=== PATIENT | male | born 2000 | race Caucasian/White ===

== ENCOUNTER 2024-10-16 18:22 | Emergency (ER) | payer OTHER, SELFPAY ==
--- NOTE | ~2024-10-16 | XR_ITS ---
EXAMINATION: XR ankle LT min 3V DATE: 10/16/2024 19:10 INDICATION: Posterior left ankle pain post fall TECHNIQUE: Anteroposterior, oblique, mortise, and lateral views of the left ankle were obtained. COMPARISON: None. FINDINGS: Alignment is normal. No fracture. Joint spaces are well maintained. No ankle joint effusion. Sugges tion of mild soft tissue swelling about the ankle. IMPRESSION: 1. No osseous abnormality. Reviewed, dictated and finalized at location A. CLE SALES PROFESSIONAL IMPRESSION: 1. No osseous abnormality.
--- NOTE | ~2024-10-16 | CT_ITS ---
EXAMINATION: CT foot LT wo con DATE: 10/16/2024 20:18 INDICATION: Posterior left ankle pain post fall TECHNIQUE: High resolution computed tomography (CT) of the left foot and ankle was performed without intravenous contrast. Additional sagittal and coronal reconstructions were performed. Automated expos ure control and iterative reconstruction technique were employed. The dose-length product was 620.32 mGy-cm. COMPARISON: Radiographs dated 10/16/2024 FINDINGS: Bone alignment is normal. No fracture. Joint spaces are normal. Tiny sclerotic bone island at the pos terior calcaneus. There is soft tissue swelling with subcutaneous edema overlying the lateral malleol us. No ankle joint effusion. IMPRESSION: 1. Soft tissue swelling about the lateral malleolus. No acute osseous abnormality. Reviewed, dictated and finalized at location A. ERIES SPECIALIST IMPRESSION: 1. Soft tissue swelling about the lateral malleolus. No acute osseous abnormali ty.
[2024-10-16 18:52] VITALS: BP 126/62; PULSE 81; RESP 18; TEMP 36.8; O2SAT 100
--- NOTE | 2024-10-16 20:04 | PC.NURSE ---
Ice applied to the affected ankle.
--- NOTE | 2024-10-16 20:11 | ED_ITS ---
HPI - Extremity Injury (Lower) General Chief Complaint: Extremity Injury, Lower Stated Complaint: fall Time Seen by Provider: 10/16/24 19:25 Source: patient Mode of arrival: EMS Limitations: no limitations History of Present Illness HPI Narrative: this is a 24-year-old male that presents to the emergency department for left foot pain. 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 Reports hearing a pop. He is not been able to ambulate since. Reports decreased range of motion due to pain. He did not hit his head or lose consciousness. Denies numbness. Related Data Allergies Allergy/AdvReac Type Severity Reaction Status Date / Time No Known Allergies Allergy Unverified 11/16/17 17:50 Review of Systems Review of Systems: CONSTITUTIONAL: Denies fever MUSCULOSKELETAL: Reports joint pain, and myalgia. NEUROLOGIC: Denies numbness, or weakness. All systems reviewed & are unremarkable except as noted in HPI and below PMFSH Past Medical History Medical History (Updated 10/16/24 @ 21:05 by Gita Gomez PA-C) History of hypertension Social History Social History (Updated 10/16/24 @ 20:13 by Gita Gomez PA-C) Substance use: never Exam Narrative: GENERAL: Well-appearing, well-nourished, and in no acute distress. HEAD: Normocephalic, atraumatic. EYES: EOMI. EXTREMITIES: Decreased active ROM in the left ankle due to pain. No edema or obvious deformity. Normal DP pulse. Normal sensation SKIN: Warm, dry, no rash. NEURO: No focal deficits. Alert and oriented x3. PSYCH: Normal mood and affect Course Course Emergency Course: patient updated on workup and agrees with plan of care Vital Signs Vital signs: Vital Signs Temperature 98.2 F 10/16/24 18:52 Pulse Rate 81 10/16/24 18:52 Respiratory Rate 18 10/16/24 18:52 Blood Pressure 126/62 10/16/24 18:52 Pulse Oximetry 100 10/16/24 18:52 Oxygen Delivery Room Air 10/16/24 18:52 Temperature 98.2 F 10/16/24 18:52 Pulse Rate 81 10/16/24 18:52 Respiratory Rate 18 10/16/24 18:52 Blood Pressure 126/62 10/16/24 18:52 Pulse Oximetry 100 10/16/24 18:52 Oxygen Delivery Room Air 10/16/24 18:52 Procedures Orthopedic Splinting/Casting Injury #1: Splinting/Casting Date: 10/16/24 Splinting/Casting Time: 21:04 Side: left Lower Extremity Injury Location: ankle Lower Extremity Immobilizer: Juan M wrap Pre-Procedure Neuro Vascular Exam: normal Post-Procedure Neuro Vascular Exam: normal Other Orthopedic Equipment: crutches MDM - Extremity Injury (Lower) MDM Narrative Medical decision making narrative: Patient presents to the ER for left ankle pain after an injury today. He is neurovascularly intact. Left ankle x-ray without acute osseous abnormalities. Left foot CT scan also without acute osseous abnormalities. patient updated on workup and agrees with plan of care. He was given warnings to return to the ER Differential Diagnosis Differential diagnosis: Likely ankle sprain and strain and ankle fracture Imaging Data Radiologist's impression: ITS Impressions Ankle X-Ray 10/16/24 19:12 IMPRESSION: 1. No osseous abnormality. Foot CT 10/16/24 20:22 IMPRESSION: 1. Soft tissue swelling about the lateral malleolus. No acute osseous abnormality. Critical Care Time Critical Care Time Critical Care Time: No Discharge Plan Discharge Clinical Impression: Ankle sprain and strain Patient Disposition: Home, Self-Care Condition: Stable Instructions: Ankle Sprain (ED) Additional Instructions: Return to the ER if you experience fever, redness and swelling of your extremity, numbness or any other symptoms that are concerning to you Wear JUAN M wrap and use crutches. No weight on the affected leg until able to bear weight without pain. Ice and elevate extremity. Tylenol as needed for pain. Toradol as needed for pain. If you take this medication do not take with other anti-inflammatories (Aleve, Ibuprofen, naproxen, etc) Follow up with primary care doctor for further care. Prescriptions: New ketorolac 10 mg tablet 10 mg PO Q8H PRN (Reason: pain) Qty: 10 0RF Rx Instructions: maximum total duration of 5 days from all oral, intranasal, or parenteral formulations Follow-up/Referrals: PHYSICIAN,BENCH WORKER [Primary Care Provider] - Jose Alberto Lopez MD [Physician] -
[2024-10-16 21:49] VITALS: BP 132/84; PULSE 67; RESP 18; O2SAT 98
[2024-10-16 21:51] VITALS: BP 130/80; PULSE 86; RESP 15; O2SAT 100
== END 2024-10-16 21:35 | disposition home or self-care (01) ==
PROVIDERS: Emergency Provider Physician Assistant
DX: S93.402A Sprain of unspecified ligament of left ankle, initial encounter (principal); S96.912A Strain of unspecified muscle and tendon at ankle and foot level, left foot, initial encounter; I10 Essential (primary) hypertension; X50.9XXA Other and unspecified overexertion or strenuous movements or postures, initial encounter
CPT/HCPCS: 73610; 73700; 99284

== ENCOUNTER 2024-11-13 21:24 | Observation (INO) | payer OTHER, SELFPAY ==
--- NOTE | ~2024-11-13 | CT_ITS ---
EXAMINATION: CT abdomen pelvis w con DATE: 11/14/2024 00:04 INDICATION: Generalized abdominal pain. Nausea and vomiting. TECHNIQUE: Computed tomography (CT) of the abdomen and pelvis was performed with 100 mL Omnipaque 350 intravenous contrast. Automated exposure control and iterative reconstruction technique were employe d. The dose-length product was 1457.64 mGy-cm. COMPARISON: None. FINDINGS: The visualized portions of the lung bases are clear without pneumonia or pleural effusion. The heart size is normal. No pericardial effusion. The liver, gallbladder, spleen, pancreas, adrenal glands, kidneys are normal. There are no dilated loops of bowel. The appendix is fluid-filled and dil ated to 9 mm. There are no pathologically enlarged lymph nodes. There is no free intraperitoneal flui d. There is mild lumbar spondylosis. IMPRESSION: 1. Appendiceal diameter of 9 mm, which is indeterminate for acute appendicitis. Reviewed, dictated and finalized at location A. NUE OFFICER
[2024-11-13 21:31] VITALS: BP 173/100; PULSE 93; RESP 17; TEMP 36.6; O2SAT 94
[2024-11-13 21:53] VITALS: BP 147/84; PULSE 68; RESP 17; TEMP 37.2; O2SAT 96
[2024-11-13 22:10] VITALS: BP 157/89; PULSE 68; RESP 14; TEMP 37.3; O2SAT 97
[2024-11-13] MEDS: SODIUM CHLORIDE 0.9% IV 1,000 ML 999 ML IV CONT ×2 (22:11→22:31)
[2024-11-13] MEDS: ONDANSETRON INJ 4 MG/2 ML VIAL IV PUSH (22:12)
[2024-11-13] MEDS: FAMOTIDINE 20 MG/2 ML VIAL IV PUSH (22:26)
[2024-11-13] MEDS: MORPHINE SULFATE (*CRX) 4 MG/ML INJ IV PUSH (22:27)
[2024-11-13 22:35] VITALS: BP 155/106; PULSE 63; RESP 17; TEMP 36.6; O2SAT 98
--- NOTE | 2024-11-13 22:52 | ED.ABDPAIN ---
HPI - Abdominal Pain General Chief Complaint: Abdominal Pain Stated Complaint: weak n/v abdominal pain Time Seen by Provider: 11/13/24 21:50 Source: patient and family Mode of arrival: EMS Limitations: no limitations and clinical condition History of Present Illness HPI narrative: Patient is a 24-year-old male who presents the ED via EMS with report of nausea and vomiting. Family at bedside assisted in providing information. Reports patient began feeling unwell this morning and developed nausea and vomiting. Has been unable to keep down any food or drink. States he has been going in and out due to the vomiting. C/o diffuse pain throughout abdomen. Family states he has had similar episodes in the past and over the past 1 month, previously was thought to be related to food poisoning or synthetic marijuana use. Patient does occasionally smoke marijuana, but has not in the last 2 days. Denies diarrhea, constipation, fevers, sick contacts. Was given 4 mg of Zofran by EMS. Related Data Allergies Allergy/AdvReac Type Severity Reaction Status Date / Time No Known Allergies Allergy Unverified 11/16/17 17:50 Review of Systems Review of Systems: All systems reviewed & are unremarkable except as noted in HPI. All systems reviewed & are unremarkable except as noted in HPI and below PMFSH Past Medical History Medical History History of hypertension Social History Social History Substance use: never Exam Narrative: GENERAL: Ill and diaphoretic appearing, morbidly obese with BMI of 42.0, in mild acute distress. Moaning on stretcher. HEAD: Normocephalic, atraumatic. RESPIRATORY: Airway patent, respirations nonlabored. Clear to auscultation bilaterally, no rales, rhonchi, wheezing. CARDIOVASCULAR: Regular rate and rhythm without murmurs, rubs, or gallops. ABDOMINAL: Soft, no appreciable focal tenderness, diffuse mild tenderness, nondistended. Normoactive BS. MUSCULOSKELETAL: Moves all extremities. No gross deformities. SKIN: Warm, slightly pale and diaphoretic appearing. NEURO: A&O X3. Speech clear though patient refusing to answer questions at times - staring off into space, closing eyes. Cranial nerves II-XII grossly intact. No ataxic movements. PSYCHIATRIC: Somewhat uncooperative, refusing to answer at times. Course Vital Signs Vital signs: Vital Signs Temperature 97.9 F 11/13/24 21:31 Pulse Rate 93 11/13/24 21:31 Respiratory Rate 17 11/13/24 21:31 Blood Pressure 173/100 H 11/13/24 21:31 Pulse Oximetry 94 11/13/24 21:31 Oxygen Delivery Room Air 11/13/24 21:31 Temperature 97.9 F 11/13/24 22:35 Pulse Rate 68 11/14/24 01:56 Respiratory Rate 28 H 11/14/24 01:56 Blood Pressure 142/73 H 11/14/24 01:56 Pulse Oximetry 99 11/14/24 01:56 Oxygen Delivery Room Air 11/13/24 21:31 MDM - Abdominal Pain MDM Narrative Medical decision making narrative: Patient presented to ED with nausea, vomiting, diffuse abdominal pain, onset this morning. History of similar previous episodes. Patient hypertensive upon arrival. He does have history of this. Afebrile. Cbc was of blood cell count of 16.4. Neutrophil predominance. No bandemia. Patient has had profuse vomiting prior to arrival. Likely in part reactive. CMP with potassium of 3.3. Will replace. Stable kidney function. Lactic acid within normal range at 1.6. Magnesium within normal range. Total bili minimally elevated, otherwise normal LFTs. Normal lipase. Urine with 2+ ketones, no signs of infection. Fluids are ongoing. Urine drug screen is positive for opioids (patient received Morphine here prior to sample) as well as cannabinoids. I do suspect component of cyclic vomiting syndrome. Patient is reporting multiple recent similar episodes over the last 1 month. Viral swabs were negative. CT scan of abdomen/pelvis was obtained and showing possible early minimal acute non perforated appendicitis. Discussed lab and imaging findings with patient. Patient is overall feeling improved, but is still reporting some pain throughout his periumbilical region. He does not seem to have any significant focal tenderness in right lower quadrant. No rebound tenderness. Will discuss with surgery. Discussed with Dr. Rice with general surgery, recommended admission under his service, start zosyn, keep NPO, will see patient. Patient is in agreement this plan and need for admission. Medical Records Attestation: I reviewed the patient's medical records. Lab Data Attestation: I reviewed the patient's lab results. 11/13/24 22:49 11/13/24 22:49 Labs: Lab Results 11/13/24 11/13/24 Range/Units 22:49 23:27 WBC 16.4 H (4.5-10.0) K/mm3 RBC 4.91 (4.6-6.20) M/mm3 Hgb 15.2 (14.0-18.0) g/dL Hct 42.7 (42.0-52.0) % MCV 87.0 (80-100) fl MCH 31.0 (26-34) pg MCHC 35.6 (32-36) g/dl RDW 12.3 (11.5-14.5) % Plt Count 273 (150-375) k/mm3 MPV 10.8 H (7.4-10.4) fl Immature Gran % (Auto) 0.4 (0-0.5) % Neut % (Auto) 77.1 H (45.5-73.1) % Lymph % (Auto) 16.0 L (18.3-44.2) % [place] % (Auto) 6.0 (2.6-8.5) % Eos % (Auto) 0.2 (0-4.4) % Baso % (Auto) 0.3 (0.2-1.2) % Lymph # (Auto) 2.62 (0.9-3.2) K/mm3 [place] # (Auto) 1.0 H (0.1-0.6) K/mm3 Eos # (Auto) 0.0 (0-0.3) K/mm3 Baso # (Auto) 0.1 (0.0-0.1) K/mm3 Abs Immat Gran (auto) 0.06 H (0.00-0.031) K/mm3 Absolute Neuts (auto) 12.7 H (1.3-6.7) K/mm3 Absolute Nucleated RBC 0.000 (0.0-0.012) K/mm3 Nucleated RBC % 0.0 (0.0-0.2) % Sodium 140 (137-145) mmol/L Potassium 3.3 L (3.4-5.0) mmol/L Chloride 110 H (98-107) mmol/L Carbon Dioxide 23 (22-30) mmol/L Anion Gap 7 (4-12) mmol/L BUN 10 (9-20) mg/dL Creatinine 0.70 (0.7-1.3) mg/dL Estim Creat Clear Calc 172 ml/min Estimated GFR > 60 (59 - ) Glucose 166 H (65-110) mg/dL Lactic Acid 1.6 (0.7-2.0) mmol/L Calcium 9.5 (8.4-10.2) mg/dL Magnesium 1.9 (1.6-2.3) mg/dL Total Bilirubin 1.8 H (0.2-1.3) mg/dL AST 19 (17-59) U/L ALT 16 (6-50) U/L Alkaline Phosphatase 87 (38-126) U/L Total Creatine Kinase 38 L (55-170) U/L Total Protein 7.0 (6.3-8.2) g/dL Albumin 4.5 (3.5-5.1) g/dL Lipase 31 (23-300) U/L Urine Color Yellow (Yellow) Urine Appearance Clear (Clear) Urine pH 6.0 (5.0-9.0) Ur Specific [place] 1.020 (1.001-1.035) Urine Protein Negative (Negative) mg/dL Urine Glucose (UA) Negative (Negative) mg/dL Urine Ketones 2+ H (Negative) mg/dL Ur Blood (Man) Negative (Negative) Urine Nitrate Negative (Negative) Urine Bilirubin Negative (Negative) Urine Urobilinogen 1.0 (<2.0) mg/dL Leukocyte Esterase Rfl Negative (Negative) MADELAINE/UL Urine Opiates Screen Positive A (Negative) Urine Methadone Screen Negative (Negative) Ur Barbiturates Screen Negative (Negative) Ur Phencyclidine Scrn Negative (Negative) Ur Amphetamine Screen Negative (Negative) U Benzodiazepines Scrn Negative (Negative) Urine Cocaine Screen Negative (Negative) U Cannabinoids Screen Positive A (Negative) Influenza A (RT-PCR) Negative (Negative) Influenza B (RT-PCR) Negative (Negative) RSV (RT-PCR) Negative (Negative) SARS-CoV-2 RNA (RT-PCR) Negative (Negative) Imaging Data Attestation: I personally reviewed and interpreted this imaging study as follows: Radiologist's impression: STAT RAD CT abd/pelvis: Motion degraded. Possible mesenteric adenitis. Possibly prominent appendix versus early minimal acute non perforated appendicitis, diameter 0.9 cm. Correlate with presentation. Otherwise no acute findings. Discharge Plan Discharge Clinical Impression: Acute appendicitis Qualifiers: Acute appendicitis type: with localized peritonitis Appendicitis gangrene presence: without gangrene Appendicitis perforation presence: without perforation Appendicitis abscess presence: without abscess Qualified Code(s): K35.30 - Acute appendicitis with localized peritonitis, without perforation or gangrene Patient Disposition: Still a Patient Condition: Stable Patient Language: Colombian Prescriptions: No Action ketorolac 10 mg tablet 10 mg PO Q8H PRN (Reason: pain) Qty: 10 0RF Rx Instructions: maximum total duration of 5 days from all oral, intranasal, or parenteral formulations Follow-up/Referrals: PHYSICIAN,CAGE UNLOADER [Primary Care Provider] -
[2024-11-13 23:17] LABS: Basophils Absolute Auto 0.1 K/mm3 (0.0-0.1); Basophils Percent Auto 0.3 % (0.2-1.2); Eosinophils Percent Auto 0.2 % (0-4.4); Hematocrit 42.7 % (42.0-52.0); Hemoglobin 15.2 g/dL (14.0-18.0); Immature Granulocyte Absolute 0.06 K/mm3 (0.00-0.031); Immature Granulocyte Percent A 0.4 % (0-0.5); Lymphocytes Absolute Auto 2.62 K/mm3 (0.9-3.2); Mean Corpuscular HGB Conc 35.6 g/dl (32-36); Mean Platelet Volume 10.8 fl (7.4-10.4); Neutrophils Absolute Auto 12.7 K/mm3 (1.3-6.7); Neutrophils Percent Auto 77.1 % (45.5-73.1); Platelet Count Result 273 k/mm3 (150-375); Red Blood Count 4.91 M/mm3 (4.6-6.20); Red Cell Distribution Width 12.3 % (11.5-14.5); White Blood Count 16.4 K/mm3 (4.5-10.0)
[2024-11-13 23:28] LABS: Alanine Aminotransferase 16 U/L (6-50); Albumin Level 4.5 g/dL (3.5-5.1); Alkaline Phosphatase 87 U/L (38-126); Anion Gap 7 mmol/L (4-12); Aspartate Amino Transferase 19 U/L (17-59); Bilirubin,Total 1.8 mg/dL (0.2-1.3); Blood Urea Nitrogen 10 mg/dL (9-20); Calcium 9.5 mg/dL (8.4-10.2); Carbon Dioxide 23 mmol/L (22-30); Chloride 110 mmol/L (98-107); Estimated CRCL calculation 172 ml/min; Estimated Glomerular Filt Rate > 60; Glucose 166 mg/dL (65-110); Lipase 31 U/L (23-300); Magnesium 1.9 mg/dL (1.6-2.3); Potassium 3.3 mmol/L (3.4-5.0); Sodium 140 mmol/L (137-145)
[2024-11-13 23:36] LABS: Add Urine Microscopic? NO; Appearance Urine Clear (Clear); Bilirubin Urine Negative (Negative); Blood Urine Negative (Negative); Color Urine Yellow (Yellow); Glucose Urine UA Negative (Negative); Ketones Urine 2+ mg/dL (Negative); Leukocyte Esterase Ur Negative LEU/UL (Negative); Nitrate Urine Negative (Negative); Protein Urine Negative (Negative)
[2024-11-13 23:43] LABS: Creatine Kinase 38 U/L (55-170)
[2024-11-13 23:44] LABS: Lactic Acid Reflex 1.6 mmol/L (0.7-2.0)
[2024-11-13 23:51] LABS: Barbiturate Screen Urine Negative (Negative); Benzodiazepines Screen Urine Negative (Negative)
[2024-11-13 23:52] LABS: Amphetamine Screen Urine Negative (Negative); Cannabinoid Screen Urine Positive (Negative); Methadone Screen Urine Negative (Negative); Opiate Screen Urine Positive (Negative); Phencyclidine Screen Urine Negative (Negative)
[2024-11-13 23:55] LABS: Influenza A QL RT-PCR Negative (Negative); Influenza B QL RT-PCR Negative (Negative); RSV RNA, RT-PCR Negative (Negative); SARS-CoV-2 RNA PCR Negative (Negative)
[2024-11-14] VITALS (15 sets, daily range): BP systolic 107–176; BP diastolic 65–97; PULSE 51–90; RESP 12–32; TEMP 36.3–37.5; O2SAT 95–100; BMI 42.8
[2024-11-14 00:03] LABS: Cocaine Screen Urine Negative (Negative)
[2024-11-14] MEDS: METOCLOPRAMIDE HCL INJ 10 MG/2 ML VIAL IV PUSH (01:40)
[2024-11-14] MEDS: POTASSIUM CHLORIDE 20 MEQ ER TABLET PO (01:41)
[2024-11-14] MEDS: diphenhydrAMINE HCl INJ 50 MG/ML VIAL 25 MG IV PUSH (01:41)
[2024-11-14] MEDS: PIPERACILLN/TAZ 3.375GM/NS50ML 3.375 GM/50 ML BAG IVPB ×3 (02:35→12:16)
--- NOTE | 2024-11-14 02:36 | PC.NURSE ---
This RN radha blood cultures from pt right AC and right hand.
--- NOTE | 2024-11-14 03:46 | ADMGEN ---
This patient, Tariq Arceo, was admitted to [facility] Surg Room 314-01. Patient/family oriented to hospital policies and general routines including ID bracelet, bed and alarms, visiting hours, pain management, procedures, bathroom and other care routines, personal items, smoking policy, room service/diet, and visiting hours. Information on how to activate the Rapid Response Team has been discussed. Patient/Family are encouraged to report perceived risks to care and to ask questions if they do not understand what they are told or what they should do.
[2024-11-14] MEDS: SODIUM CHLORIDE 0.9% IV 1,000 ML 100 ML IV CONT (04:12)
[2024-11-14] MEDS: ONDANSETRON INJ 4 MG/2 ML VIAL IV PUSH ×2 (06:33→13:32)
--- NOTE | 2024-11-14 08:44 | P.PNAN_ITS ---
Anes - Initial Pre Proc Eval Procedure: Operation Date: 11/14/24 09:30 Proposed Procedures p Laparoscopic Appendectomy, Possible Open - Boubacar Rice DO Date/Time: 11/14/24 08:44 Surgeon: Boubacar Rice DO Pre Op Diagnosis: Acute Appendicitis Patient Data Age: 24 Gender: M Height: 1.68 m Weight: 120.5 kg Last Vital Signs Temp 36.3 C L 11/14/24 04:11 Pulse 90 11/14/24 04:11 Resp 18 11/14/24 04:11 BP 131/65 11/14/24 04:11 Pulse Ox 100 11/14/24 04:11 O2 Del Method Room Air 11/13/24 21:31 Allergies Allergy/AdvReac Type Severity Reaction Status Date / Time No Known Allergies Allergy Unverified 11/16/17 17:50 Home Medications ?Medication ?Instructions ?Recorded ?Confirmed ?Type ketorolac 10 mg tablet 10 mg PO Q8H PRN pain #10 tabs 10/16/24 Rx Laboratory Tests 11/13/24 11/13/24 22:49 23:27 WBC 16.4 H K/mm3 (4.5-10.0) RBC 4.91 M/mm3 (4.6-6.20) Hgb 15.2 g/dL (14.0-18.0) Hct 42.7 % (42.0-52.0) MCV 87.0 fl (80-100) MCH 31.0 pg (26-34) MCHC 35.6 g/dl (32-36) RDW 12.3 % (11.5-14.5) Plt Count 273 k/mm3 (150-375) MPV 10.8 H fl (7.4-10.4) Immature Gran % (Auto) 0.4 % (0-0.5) Neut % (Auto) 77.1 H % (45.5-73.1) Lymph % (Auto) 16.0 L % (18.3-44.2) [place] % (Auto) 6.0 % (2.6-8.5) Eos % (Auto) 0.2 % (0-4.4) Baso % (Auto) 0.3 % (0.2-1.2) Lymph # (Auto) 2.62 K/mm3 (0.9-3.2) [place] # (Auto) 1.0 H K/mm3 (0.1-0.6) Eos # (Auto) 0.0 K/mm3 (0-0.3) Baso # (Auto) 0.1 K/mm3 (0.0-0.1) Abs Immat Gran (auto) 0.06 H K/mm3 (0.00-0.031) Absolute Neuts (auto) 12.7 H K/mm3 (1.3-6.7) Absolute Nucleated RBC 0.000 K/mm3 (0.0-0.012) Nucleated RBC % 0.0 % (0.0-0.2) Sodium 140 mmol/L (137-145) Potassium 3.3 L mmol/L (3.4-5.0) Chloride 110 H mmol/L (98-107) Carbon Dioxide 23 mmol/L (22-30) Anion Gap 7 mmol/L (4-12) BUN 10 mg/dL (9-20) Creatinine 0.70 mg/dL (0.7-1.3) Estim Creat Clear Calc 172 ml/min Estimated GFR > 60 (59 - ) Glucose 166 H mg/dL (65-110) Lactic Acid 1.6 mmol/L (0.7-2.0) Calcium 9.5 mg/dL (8.4-10.2) Magnesium 1.9 mg/dL (1.6-2.3) Total Bilirubin 1.8 H mg/dL (0.2-1.3) AST 19 U/L (17-59) ALT 16 U/L (6-50) Alkaline Phosphatase 87 U/L (38-126) Total Creatine Kinase 38 L U/L (55-170) Total Protein 7.0 g/dL (6.3-8.2) Albumin 4.5 g/dL (3.5-5.1) Lipase 31 U/L (23-300) Urine Color Yellow (Yellow) Urine Appearance Clear (Clear) Urine pH 6.0 (5.0-9.0) Ur Specific [place] 1.020 (1.001-1.035) Urine Protein Negative mg/dL (Negative) Urine Glucose (UA) Negative mg/dL (Negative) Urine Ketones 2+ H mg/dL (Negative) Ur Blood (Man) Negative (Negative) Urine Nitrate Negative (Negative) Urine Bilirubin Negative (Negative) Urine Urobilinogen 1.0 mg/dL (<2.0) Leukocyte Esterase Rfl Negative [place]AD[place]INE/UL (Negative) Urine Opiates Screen Positive A (Negative) Urine Methadone Screen Negative (Negative) Ur Barbiturates Screen Negative (Negative) Ur Phencyclidine Scrn Negative (Negative) Ur Amphetamine Screen Negative (Negative) U Benzodiazepines Scrn Negative (Negative) Urine Cocaine Screen Negative (Negative) U Cannabinoids Screen Positive A (Negative) Influenza A (RT-PCR) Negative (Negative) Influenza B (RT-PCR) Negative (Negative) RSV (RT-PCR) Negative (Negative) SARS-CoV-2 RNA (RT-PCR) Negative (Negative) Patient hx anesthesia problems: none Family hx anesthesia problems: none Results Review: All pre-operative results and documents have been reviewed as part of the pre-operative evaluation. COUNTS INCLUDE 234 BEDS AT THE [facility] Past Medical History Medical History History of hypertension Social History Social History (Updated 11/14/24 @ 09:11 by Wyatt Cai DO) Smoking status: Never smoker Additional smoking assessment comments: NICOTINE VAPING Alcohol intake: never Substance use: current Substance use type: marijuana Other substance usage details: daily Do You Feel Safe in your Home?: Yes Lack of Transportation: YES Lack of Food: Never True Current Housing: I Have Housing Concerned About Future Housing: No Difficulty Paying Gas/Electric Bills: No Difficulty Paying for Meds: No Currently Unemployed: No Education: High School Diploma/GED Difficulty w/ Childcare or Family Care: No Spiritual care concerns: No Anes - Eval Final PreProcedure Day of Procedure 11/14/24 08:44 Patient weight: morbidly obese Heart: regular rate and rhythm Lungs: clear to auscultation Airway: Mallampati scale class III Neurological: alert and oriented Last oral intake: >/= 8 hours ASA classification: III Emergent: yes Anesthetic plan: proceed Anesthesia type and monitoring: general GIVS and standard monitoring Results Review: All pre-operative results and documents have been reviewed as part of the pre-operative evaluation. Informed Consent: The patient's anesthetic plan and its attendant risks and benefits were discussed with the patient/family/POA. Questions were solicited and answers provided to the satisfaction of the patient/family/POA.
[2024-11-14] MEDS: LACTATED RINGERS 1,000 ML 30 ML IV CONT ×2 (09:00→12:20)
--- NOTE | 2024-11-14 10:01 | P.HP_ITS ---
H&P: HPI History of Present Illness Date/Time: 11/14/24 10:01 Chief Complaint: Periumbilical abdominal pain Narrative: This is a 24-year-old man who presented to the emergency department overnight with abdominal pain with nausea and vomiting. Patient has been having intermittent abdominal pain over the past week. It has mostly been located periumbilical but last night it was also starting to localize more to the right lower quadrant. His bowels have been moving normally. He denies any fevers. In the emergency department he was noted to have an elevated white blood count and CT showed evidence of a dilated appendix suggestive of possible early acute appendicitis. He was started on broad-spectrum IV antibiotics and admitted for further treatment. Review of Systems Review of Systems: All systems reviewed & are unremarkable except as noted in HPI and below Eyes: Eyes: Denies change in vision ENT: Denies hearing loss, Denies neck pain and Denies sore throat Cardiovascular: Cardiovascular: Denies chest pain and Denies dyspnea Respiratory: Respiratory: Denies cough, Denies dyspnea and Denies wheezing Gastrointestinal: Gastrointestinal: Reports as per HPI Genitourinary: Genitourinary: Denies hematuria and Denies dysuria Musculoskeletal: Musculoskeletal: Denies arthralgias, Denies joint swelling and Denies neck pain Allergic/Immunologic: Allergic/Immunologic: Denies wheezing PMFSH Past Medical History Medical History History of hypertension Social History Social History (Updated 11/14/24 @ 09:11 by Wyatt Cai DO) Smoking status: Never smoker Additional smoking assessment comments: NICOTINE VAPING Alcohol intake: never Substance use: current Substance use type: marijuana Other substance usage details: daily Do You Feel Safe in your Home?: Yes Lack of Transportation: YES Lack of Food: Never True Current Housing: I Have Housing Concerned About Future Housing: No Difficulty Paying Gas/Electric Bills: No Difficulty Paying for Meds: No Currently Unemployed: No Education: High School Diploma/GED Difficulty w/ Childcare or Family Care: No Spiritual care concerns: No Meds Home Medications and Allergies Home Medications ?Medication ?Instructions ?Recorded ?Confirmed ?Type ketorolac 10 mg tablet 10 mg PO Q8H PRN pain #10 tabs 10/16/24 Rx Allergies Allergy/AdvReac Type Severity Reaction Status Date / Time No Known Allergies Allergy Verified 11/14/24 09:27 Vital Signs Vital Signs - 24 hr 11/13/24 21:31 11/13/24 21:53 11/13/24 22:10 Temperature 97.9 F 99.0 F 99.1 F Pulse Rate 93 68 68 Respiratory Rate 17 17 14 Blood Pressure 173/100 H 147/84 H 157/89 H Pulse Oximetry 94 96 97 Oxygen Delivery Room Air 11/13/24 22:35 11/14/24 01:56 11/14/24 02:55 Temperature 97.9 F Pulse Rate 63 68 81 Respiratory Rate 17 28 H 18 Blood Pressure 155/106 H 142/73 H 133/81 Pulse Oximetry 98 99 99 Oxygen Delivery 11/14/24 04:11 11/14/24 08:45 Temperature 97.3 F L 99.4 F Pulse Rate 90 51 L Respiratory Rate 18 12 Blood Pressure 131/65 153/83 H Pulse Oximetry 100 98 Oxygen Delivery Room Air Exam Const: General: alert; No acute distress Orientation/consciousness: patient oriented x3 Limitations: no limitations HENMT: Head: normocephalic and atraumatic Ears: hearing grossly normal bilaterally Face/Nose/Sinus: Normal external nose present and Normal nares present Mouth: Yes Normal oral and palatal mucosa present and Yes moist mucous membranes Eyes: General: appearance normal, both eyes and all related structures Conjunctivae: conjunctivae normal Sclera: sclerae normal Pupils: Equal, round and reactive pupils present EOM: EOMs intact bilaterally Neck: Neck: normal visual inspection, full ROM, no lymphadenopathy, supple and no JVD Lymphatic: no lymphadenopathy noted Chest: Chest palpation & inspection: normal inspection of the chest Resp: Effort & Inspection: normal respiratory effort and able to speak in complete sentences Auscultation: clear to auscultation bilaterally Percussion: percussion normal Cardio: Jugular venous distension: no JVD Rate: regular rate Rhythm: regular rhythm Heart sounds: S1 normal heart sound present and S2 normal heart sound present Peripheral pulses: Peripheral pulses 2+ throughout GI: Inspection: normal to inspection and obesity GI Palp: Yes Soft to palpation, Yes Tenderness to palpation present (GI) (Diffusely, but slightly worse in right lower quadrant), No Guarding due to palpation present (GI) and No Rebound tenderness present Auscultation: normal bowel sounds : General: Yes no CVA tenderness Back/Spine/Pelvis: Back: no CVA tenderness Skin: General skin exam: normal color and dry skin Neuro: General: patient oriented x3, gait normal, moves all extremities, no focal motor deficits and CN's II-XI intact bilaterally Cranial nerves: Yes Equal, round and reactive pupils present Speech: normal speech Extrem: General: normal to inspection and capillary refill normal H&P: Results Labs Labs: Short CBC 11/13/24 Range/Units 22:49 WBC 16.4 H (4.5-10.0) K/mm3 Hgb 15.2 (14.0-18.0) g/dL Hct 42.7 (42.0-52.0) % Plt Count 273 (150-375) k/mm3 BMP 11/13/24 22:49 Sodium 140 Potassium 3.3 L Chloride 110 H Carbon Dioxide 23 BUN 10 Creatinine 0.70 Glucose 166 H Calcium 9.5 Cardiac Enzymes 11/13/24 Range/Units 23:27 Total Creatine Kinase 38 L (55-170) U/L Liver Function 11/13/24 Range/Units 22:49 Total Bilirubin 1.8 H (0.2-1.3) mg/dL AST 19 (17-59) U/L ALT 16 (6-50) U/L Alkaline Phosphatase 87 (38-126) U/L Albumin 4.5 (3.5-5.1) g/dL Urine 11/13/24 Range/Units 23:27 Urine Color Yellow (Yellow) Urine Appearance Clear (Clear) Urine pH 6.0 (5.0-9.0) Ur Specific [place] 1.020 (1.001-1.035) Urine Protein Negative (Negative) mg/dL Urine Glucose (UA) Negative (Negative) mg/dL Imaging CT scan - abdomen: Radiologist's impression: ITS Impressions Abdomen/Pelvis CT 11/14/24 07:04 IMPRESSION: 1. Appendiceal diameter of 9 mm, which is indeterminate for acute appendicitis. Assessment and Plan Assessment and plan (1) Acute appendicitis: Qualifiers: Acute appendicitis type: with localized peritonitis Appendicitis abscess presence: without abscess Appendicitis gangrene presence: without gangrene Appendicitis perforation presence: without perforation Qualified Code(s): K35.30 - Acute appendicitis with localized peritonitis, without perforation or gangrene Code(s): K35.80 - Unspecified acute appendicitis Status: Acute Assessment and Plan: * I have reviewed the CT and discussed the findings with the patient. He has been having intermittent pains, but the past couple days the pain has become more persistent. CT shows evidence of a dilated appendix suggestive of possible early acute appendicitis. Along with his exam findings and elevated white blood count, I feel this would be reasonable to be treated as acute appendicitis. I discussed medical and surgical treatment options and patient feels comfortable proceeding with surgery. I have recommended laparoscopic a ppendectomy, possible open. I discussed the procedure, risks, benefits, and alternatives. Questions were answered. Patient was started on Zosyn in the emergency department. Will continue this perioperatively.
--- NOTE | 2024-11-14 10:01 | WPDHPUPDATE1 ---
History and Physical Update Update Date/Time: 11/14/24 10:01 History and Physical has been reviewed, including an updated exam of the patient. There are NO changes in the patient's condition. Risks, benefits, and alternatives have been discussed and questions answered. Patient agrees to proceed with procedure.
[2024-11-14] MEDS: BUPIVACAINE/EPINEPHRINE 0.5% 30 ML VIAL INFILTRATE (11:01)
--- NOTE | 2024-11-14 11:17 | P.OP_ITS ---
Procedure Note - Detailed Date of Procedure 11/14/24 Pre-op Diagnosis Acute Appendicitis Post-op Diagnosis Same Procedure Performed Laparoscopic appendectomy Surgeon Boubacar Rice, DO Anesthesia General and Local (0.5% bupivicaine with epinephrine) Indications This is a 24-year-old man who presented to the emergency department overnight with periumbilical and right lower quadrant abdominal pain. He had an elevated white blood count and CT showed evidence of a 9 mm dilated appendix. He was started on Zosyn and admitted for further treatment. Discussions were made with the patient about treatment options and decision was made to proceed with laparoscopic appendectomy, possible open. Findings Laparoscopic appendectomy was performed. The appendix did appear dilated and inflamed, but there was no evidence of perforation or abscess. The base of the appendix appeared healthy and viable. The appendix was removed and sent to the lab for pathology. Description of Procedure Procedure as well as risks, benefits, and alternatives were explained to the patient. The patient agreed to proceed. Written consent was obtained and placed in chart prior to procedure. The patient was brought back to surgical suite. He was placed supine on operating table. Time-out was done to confirm the patient and procedure. The patient was then intubated by the Anesthesia Department. His abdomen was prepped and draped in sterile fashion using chlorhexidine prep. A 5 mm incision was made just to the left of the patient's umbilicus and a 5 mm Optiview trocar was advanced through the abdominal layers under direct visualization. Once inside the peritoneal cavity, carbon dioxide insufflation was used to create a pneumoperitoneum. The camera was inserted and the abdomen was inspected. No immediate abnormalities were identified. The patient was then placed in slight Trendelenburg position and rotated to the left. A 5 mm incision was made in the suprapubic region in midline and a 5 mm trocar was inserted under direct visualization. A 12 mm incision was made in the left lower quadrant and a 12 mm trocar was inserted under direct visualization. The right lower quadrant was carefully inspected. The cecum was identified and then this was traced back to the appendix. The appendix was identified and grasped at the mesoappendix and lifted anteriorly. Careful blunt dissection was carried out at the base of the appendix through the mesoappendix using a [place] grasper. An Endo-BRENDA 45 mm blue load stapler was then advanced across the base of the appendix and clamped and fired. A white reload was then clamped across the mesoappendix and fired. This freed up our appendix completely. It was then placed in an EndoCatch bag and removed through the left lower quadrant port. The staple lines were then inspected. Hemostasis appeared adequate and the staple lines appeared secure. The area was then irrigated with sterile saline. The pelvis was then carefully inspected and irrigated with st erile saline as well and the remainder of the abdomen was carefully inspected. The patient was then flattened out in bed. One final inspection was made around the abdominal cavity and no other abnormalities were seen. The left lower quadrant port was removed and a Blas-Tasneem cone was used to approximate the fascia with an 0 Vicryl simple interrupted suture. The remaining ports were then removed under direct visualization. The camera was removed and the pneumoperitoneum was released. 0.5% bupivacaine with epinephrine was infiltrated locally around each of the incisions. The skin of the incisions was then approximated using 4-0 Monocryl subcuticular suture and Exofin glue was applied on top. The patient was then awakened from anesthesia, extubated, and transferred to Recovery. Estimated Blood Loss 25 Urine Output 300 Pathology Yes (Appendix) Complications No immediate complications Condition Stable Disposition Floor [facility] Billing Surgery - Charge Forward: Surgery Billing
--- NOTE | 2024-11-14 11:19 | P.DS_ITS ---
DS: Admitting Diagnosis Discharge Date 11/14/2024 Admitting Diagnosis Acute appendicitis DS: Discharge Diagnosis Discharge Diagnosis (1) Acute appendicitis: Qualifiers: Acute appendicitis type: with localized peritonitis Appendicitis abscess presence: without abscess Appendicitis gangrene presence: without gangrene Appendicitis perforation presence: without perforation Qualified Code(s): K35.30 - Acute appendicitis with localized peritonitis, without perforation or gangrene Code(s): K35.80 - Unspecified acute appendicitis Status: Acute DS: Summary Hospital Course Reason for hospitalization: Acute appendicitis Hospital Course: This is a 24-year-old man who presented to the emergency department on 11/13/2024 with right lower quadrant and periumbilical abdominal pain. CT showed evidence of acute appendicitis with a slightly dilated appendix. He also had an elevated white blood count and tenderness in the right lower quadrant. He was placed in observation and started on Zosyn. He underwent laparoscopic appendectomy on 11/14/2024. Surgery was uncomplicated and he was returned to the surgical floor postoperatively. His diet and activity were advanced as tolerated. He was discharged home once pain was controlled, vitals remained stable, he was tolerating his diet, and he was ambulating in the halls. Status at Discharge Functional status at discharge: independent ambulation Overall status at discharge: patient is progressing back to baseline Time Spent with Patient Time attestation: Total time spent providing and/or coordinating discharge services: Time spent: Less than 30 minutes Exam Const: General: comfortable and no acute distress Resp: Effort & Inspection: normal respiratory effort Cardio: Rate: regular rate Rhythm: regular rhythm GI: Inspection: incision (Intact with glue) GI Palp: Yes Soft to palpation DS: Data Data Completed and Pending Pending studies at discharge: Pending at discharge 11/14/24 11:09 Surgical [PTH] Routine Labs on day of discharge: Labs from last 24 hours 11/13/24 11/13/24 23:27 22:49 WBC 16.4 H RBC 4.91 Hgb 15.2 Hct 42.7 MCV 87.0 MCH 31.0 MCHC 35.6 RDW 12.3 Plt Count 273 MPV 10.8 H Immature Gran % (Auto) 0.4 Neut % (Auto) 77.1 H Lymph % (Auto) 16.0 L [place] % (Auto) 6.0 Eos % (Auto) 0.2 Baso % (Auto) 0.3 Lymph # (Auto) 2.62 [place] # (Auto) 1.0 H Eos # (Auto) 0.0 Baso # (Auto) 0.1 Abs Immat Gran (auto) 0.06 H Absolute Neuts (auto) 12.7 H Absolute Nucleated RBC 0.000 Nucleated RBC % 0.0 Sodium 140 Potassium 3.3 L Chloride 110 H Carbon Dioxide 23 Anion Gap 7 BUN 10 Creatinine 0.70 Estim Creat Clear Calc 172 Estimated GFR > 60 Glucose 166 H Lactic Acid 1.6 Calcium 9.5 Magnesium 1.9 Total Bilirubin 1.8 H AST 19 ALT 16 Alkaline Phosphatase 87 Total Creatine Kinase 38 L Total Protein 7.0 Albumin 4.5 Lipase 31 Urine Color Yellow Urine Appearance Clear Urine pH 6.0 Ur Specific [place] 1.020 Urine Protein Negative Urine Glucose (UA) Negative Urine Ketones 2+ H Ur Blood (Man) Negative Urine Nitrate Negative Urine Bilirubin Negative Urine Urobilinogen 1.0 Leukocyte Esterase Rfl Negative Urine Opiates Screen Positive A Urine Methadone Screen Negative Ur Barbiturates Screen Negative Ur Phencyclidine Scrn Negative Ur Amphetamine Screen Negative U Benzodiazepines Scrn Negative Urine Cocaine Screen Negative U Cannabinoids Screen Positive A Influenza A (RT-PCR) Negative Influenza B (RT-PCR) Negative RSV (RT-PCR) Negative SARS-CoV-2 RNA (RT-PCR) Negative Imaging Radiologist's impression: ITS Impressions Abdomen/Pelvis CT 11/14/24 07:04 IMPRESSION: 1. Appendiceal diameter of 9 mm, which is indeterminate for acute appendicitis. Discharge Plan Discharge Attending physician on discharge: Boubacar Michelle Discharging Clinician: Boubacar Michelle Anticipated Discharge Date/Time: 11/14/24 15:00 Patient Disposition: Home, Self-Care Activity: other - see discharge instructions Diet: regular Wound Care Instructions: other - see discharge instructions Discharge Instructions: DISCHARGE INSTRUCTION SHEET FOR HERNIA, GALLBLADDER AND APPENDIX SURGERIES DR. MICHELLE PATIENT TO TAKE HOME 1. May shower in 24 hours, no soaking in bath x 2weeks. 2. Call office for: * Wound increasingly painful or bleeding * Vomiting * Fever of greater than 101 degrees 3. If no bowel movement for three days, take 1 oz. (30 ml) Milk of Magnesia or MiraLax 17g 1 to 2 times daily. 4. No heavy lifting > 10-15 pounds x weeks for hernia repairs and 2 weeks for laparoscopic cholecystectomy or appendectomy. 5. No driving for 3 days or while taking narcotic pain medications. 6. Ice to surgical site for 48 hours (30 min on, then 30 min off). 7. Up walking 10-30 minutes three times per day. 8. Resume previous home medications. 9. Follow-up 10-14 days in office for wound check or as previously scheduled. ([phone]) 10. Oral pain medications prescription to be sent to pharmacy. Take Tylenol 500mg every 6 hours and Ibuprofen 600mg every 6 hours for the first 2 days, then as needed. 11. NUTRITION: Start out by drinking fluids and increase your diet as tolerated. If you experience nausea, try dry toast, crackers, and 7-UP. If nausea or vomiting persists, contact your surgeon?s office. 12. Gallbladders-Low Fat Diet for 2 weeks (send care note of low fat diet) 13. Inguinal Hernias-wear scrotal support for 48 hours 14. Abdominal Hernias-if sent home with abdominal binder, wear for the first 2 weeks (may remove to shower or at night to sleep). Revised March 2019 Patient Instructions: Antibiotic Form Patient Language: Bulgarian Stand Alone Forms: General Discharge Information, Work/School Release IP Follow-up/Referrals: Boubacar Michelle DO [Physician] - 2 Weeks Discharge Medications: New oxycodone-acetaminophen [Endocet] 5-325 mg tablet 1 tablet PO Q4H PRN (Reason: pain) Qty: 10 0RF Continued ketorolac 10 mg tablet 10 mg PO Q8H PRN (Reason: pain) Qty: 10 0RF Rx Instructions: maximum total duration of 5 days from all oral, intranasal, or parenteral formulations Date of admission: 11/14/24 02:08 Primary Care Provider: PHYSICIAN,BULLET SWAGING MACHINE OPERATOR Admitting Provider: Boubacar Michelle Attending physician on admission: Boubacar Michelle Condition: Improved
[2024-11-14] MEDS: fentaNYL CITRATE INJ (*CRX) 100 MCG/2 ML VIAL 25 MCG IV PUSH ×5 (11:55→13:06)
--- NOTE | 2024-11-14 12:30 | SUR.PREOP ---
CORRECTION: PATIENT WAS ON 8 LITERS OXYGEN UPON ARRIVAL TO PACU AT 1126 AND NOT ROOM AIR IS CHARTED IN THE FLOWSHEET.
[2024-11-14] MEDS: MORPHINE SULFATE (*CRX) 4 MG/ML INJ IV PUSH (13:30)
--- NOTE | 2024-11-14 15:26 | PC.NURSE ---
received order ok to d/c pt when tolerating food, ambulating in halls, and has adequate pain control, and stable vitals. pt ate lunch with no report of problems, ambulated in hallway twice with no reported issue, and states at this time he feels that his pain is minimal and tolerable. pt states his desire to return home at this time. per physician order, he meets criteria for discharge.
== END 2024-11-14 15:45 | disposition home or self-care (01) ==
LOC: ANHED 11-14 02:08 → ANH3MEDSUR 11-14 03:26
PROVIDERS: Emergency Medicine; Admitting Provider Surgery; Emergency Provider Physician Assistant; Visit Provider Surgery
PROC: 0DTJ4ZZ Resection of Appendix, Percutaneous Endoscopic Approach (ICD-10-PCS; CPT 44970; principal; 2024-11-14 09:30)
DX: K35.30 Acute appendicitis with localized peritonitis, without perforation or gangrene (principal); I10 Essential (primary) hypertension; E66.01 Morbid (severe) obesity due to excess calories; Z68.41 Body mass index [BMI] 40.0-44.9, adult; F17.290 Nicotine dependence, other tobacco product, uncomplicated; Z20.822 Contact with and (suspected) exposure to COVID-19; Z79.899 Other long term (current) drug therapy
CPT/HCPCS: 44970; 36415; 74177; 80053; 80307; 81003; 82550; 83605; 83690; 83735; 85025; 87040; 87637; 88304; 96361; 96365; 96375; 99285; A9270; G0378; G0379; J0330; J1200; J2003; J2250; J2270; J2405; J2543; J2704; J2765; J3010; J7030; J7120; Q9967

== ENCOUNTER 2025-01-22 04:04 | Emergency (ER) | payer OTHER, SELFPAY ==
--- OUTSIDE RECORDS SUMMARY | 2025-01-22 04:07 | XMS_ITS | CONTINUITY OF CARE DOCUMENT ---
Author Name monica anderson Address Unknown Organization [facility] Address [address] [place] [address] Phone [phone] Care Team Providers Care Flat Sorting Machine Clerk Name Role Phone Dayo SPRINGER, Alissa Unavailable Alissa Oshea MD Unavailable [phone] INSURANCE PROVIDERS Payer name Policy type / Coverage type Berhane red libertarian ID [employer] Medicaid [id number]
--- OUTSIDE RECORDS SUMMARY | 2025-01-22 04:07 | XMS_ITS | Patient Health Record ---
Author Organization [facility] Address [address] [place] [id number] Care Team Providers Care Manager Tax Name Role Phone Melanie Booth Unavailable [phone] Reason For Referral No Information Medications Medication SIG (Take, Route, Fr equency, Duration) Notes Start Date End Date Status PROzac 20 MG take 1 capsule by or al route every morning Oral ([facility]) 05/21/2014 Active SEROquel 50 MG take 1 - 2 Tablet by oral route every bedtime Oral ([facility]) 05/21/2014 Active Problems Problem Type SNOMED Code ICD Code Onset Dates Problem Status W/U Status Risk Notes Problem Attention deficit hyperactivity disorder (601609457) 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
--- OUTSIDE RECORDS SUMMARY | 2025-01-22 04:07 | XMS_ITS | Clinical Summary ---
Author Organization [facility] Address [address] [place] [address] Care Team Providers Care Correctional Lieutenant Name Role Phone None, Provider MD Primary Care Provider Unavaila ble Allergies Active Allergy Reactions Criticality Noted Date Comments Aloe Unknown 10/22/2024 Lidocaine Rash,Itching Low 04/04/2014 Medications omeprazole EC 20 MG Tab EC tablet Take 1 tablet by mouth daily. Active sucralfate 1 G tabletIndications: Nausea and vomiting, intractability of vomiting not specified, unspecified vomiting type Take 1 tablet (1 g total) by mouth nightly at bedtime. 30 tablet 9 Active albuterol sulfate HFA 108 (90 Base) MCG/ACT inhaler Inhale 2 puffs into the lungs every 6 (six) hours as needed for Wheezing or Shortness of breath. 0 9 Active ibuprofen 800 MG tablet Take 0.5 tablets (400 mg total) by mouth every 6 (six) hours as needed for Pain. 0 9 Active lisinopril 40 MG tabletIndications: Essential hypertension Take 1 tablet (40 mg total) by mouth daily. 30 tablet 9 Active ondansetron (ZOFRAN) 4 MG tablet Take 1 tablet (4 mg total) by mouth every 8 (eight) hours as needed for Nausea. 20 tablet 4 Active Active Problems Problem Noted Date Diagnosed Date Gastro-esophageal reflux disease without esophag itis 09/24/2019 Right upper quadrant abdominal pain 09/23/2019 Intractable vomiting with nausea, unspecified vo miting type 09/08/2019 Essential hypertension 04/02/2019 Obesity 06/07/2013 Immunizations Name Administration Dates Next Due Dtp (Generic) 04/18/2006, 3,2002,06/13 Fluzone 6 Months+ Quad (0.5 mL Prefilled Syringe) 10/10/2019 HPV 04/26/2017 HPV GARDASIL 9-VALENT 10/10/2019 Hepatitis A (Havrix 720 [address].U) 10/10/2019 Hepatitis A Vaccine - 2 Dose 12/03/2004 Hepatitis B Pediatric 04/18/2006,02/27/2003,05/21 Hib Vaccine, Prp-T 04/18/2006, 5,07/03/2003,06/13 MMR (Generic) 08/16/2006,05/22/2003 Meningococcal (Menactra) 10/10/2019 Meningococcal Vac A,C,Y,W-135 Sc 04/26/2017 Pneumococcal (Prevnar 13) 04/18/2006,,2002,06/13 Polio Ipv (Generic) 08/16/2006, 6,02/27/2003,06/13 Tdap (Generic) 06/06/2013 Varicella Vaccine 08/16/2006,05/22/2003 Family History Medical History Relation Comments Crohns Disease Maternal Grandfather Dementia Maternal Grandmother Depression Maternal Grandmother Diabetes Maternal Grandmother Factor 5 Maternal Grandmother Hypertension Maternal Grandmother Diabetes Maternal Uncle Heart Disease Maternal Uncle Depression Paternal Grandmother Relation Status Comments Maternal Grandfather Maternal Grandmother Alive Maternal Uncle Paternal Grandfather Paternal Grandmother Alive Social History Tobacco Use Types Packs/Day Years Used Date Smoking Tobacco: Every Day Cigarettes Smokeless Tobacco: Never Alcohol Use Standard Drinks/Week Comments No 0 (1 standard drink = 0.6 oz pur e alcohol) AUDIT-C Answer Date Recorded Frequency of Alcohol Consumption Never 04/01/2019 Average Number of Drinks Not on file 019 Frequency of Binge Drinking Not on file 03/20 Sex and Gender Information Value Date Recorded Sex Assigned at Not on file Legal Sex Male 11:21 PM CDT Gender Identity Not on file Sexual Orientation Not on file Last Filed Vital Signs Vital Sign Reading Time Taken Comments Blood Pressure 156/102 10/22/2024 10:38 AM DBA Pulse 91 10/22/2024 10:38 AM DBA Temperature 36.3 C (97.3 F) 10/22/2024 10:38 AM DBA Respiratory Rate 20 10/22/2024 10:38 AM DBA Oxygen Saturation 100% 10/22/2024 10:38 AM DBA Inhaled Oxygen Concentration - - Weight 117.9 kg (260 lb) 10/22/2024 10:38 AM DBA Height 172.7 cm (5' 8 ) 10/22/2024 10:38 AM DBA Body Mass Index 39.53 10/22/2024 10:38 AM DBA Plan of Treatment Health Maintenance Due Date Last Done Comments Annual Physical 2005 Pneumococcal Vaccine: Pediatrics (0 to 5 Years) and At-Risk Patients (6 to 64 Years) (1 of 1 - PPSV23 or PCV20) 2008 04/18/2006, 12/17/2003, 2002, Additional history exists PHQ-2 (Physician [place]) 2014 Meningococcal B Vaccine (1 of 2 - Standard) 2018 HPV Vaccines (3 - Male 3-dose series) 01/02/2020 10/10/2019, 04/26/2017 DTaP, Tdap and Td Vaccines (6 - Td or Tdap) 06/06/2023 06/06/2013, 08/16/2006, 04/18/2006, Additional history exists COVID-19 Vaccine (1 - season) 2024 Influenza Adult (#1) 2024 11/18/2021, 10/10/20 19 PHQ-2 ([facility] [place]) 11/20/2024 Hepatitis B Vaccines Completed 04/18/2006, 02/27/2003, 2002 Hepatitis C Completed 12/21/2017, 12/21/2017 Meningococcal Vaccine Completed 10/10/2019 , 04/26/2017, 05/11/2016 RSV Immunizations Under 20 Months Aged Out No longer eligible based on patient's age to complete this topic Procedures Procedure Name Priority Date/Time Associated Diagnosis Comments HEPATITIS PANEL,ACUTE Routine 12/21/2017 11:08 AM DBA from Last 3 Months or Most Recently Relevant to Health Maintenance Results * HEPATITIS PANEL,ACUTE (12/21/2017 11:08 AM DBA) HEPATITIS B SURFACE AG NON-REACTI VE NON-REACTI VE 12/22/2017 1:38 PM DBA [facility] HEP B CORE TOTAL AB NON-REACTI VE NON-REACTI VE 12/22/2017 1:38 PM DBA [facility] HEP B SURFACE AB NON-REACTI VE 12/22/2017 1:38 PM DBA [facility] HAV IGM NON-REACTI VE NON-REACTI VE 12/22/2017 1:38 PM DBA [facility] HEPATITIS C AB NON-REACTI VE NON-REACTI VE 12/22/2017 1:38 PM DBA [facility] 12/21/2017 11:0 8 AM DBA 12/22/2017 12:44 PM DBA us Generic Conversion Md [facility] Final R esult [facility] [address] [place] [address], from Last 3 Months or Most Recently Relevant to Health Maintenance [place] [address] [place] [address] [facility] Care Teams Correctional Lieutenant Relationship Specialty Start Date End Date None, Provider, MD PCP - General UNKNOWN PHYSICIAN SPECIALTY 07/14/24
--- OUTSIDE RECORDS SUMMARY | 2025-01-22 04:07 | XMS_ITS | Encounter Summary ---
Author Organization [facility] Address [address] [place] [address] Care Team Providers Care [place]imer[place] Tower Loader Name Role Phone Howie Macdonald MD Primary Care Provider + None, Provider Primary Care Provider Unavaila ble Encounter Details Date Type Department Care Team (Late st Contact Info) Description 01/09/2017 Abstract [facility] [place] Conversion Howie Macdonald MD [address] [phone] Social History Tobacco Use Types Packs/Day Years Used Date Smoking Tobacco: Never Assessed Sex and Gender Information Value Date Recorded Sex Assigned at Not on file Legal Sex Male 11:21 PM CDT Gender Identity Not on file Sexual Orientation Not on file documented as of this encounter Miscellaneous Notes * Letter - Howie Macdonald MD - 01/09/2017 12:00 AM CST Jan 09, 2017 Tariq Arceo [address] [place] [phone] Dear Tariq Arceo, Thank you for choosing [facility] for your health care needs. We appreciate the opportunity to help you maintain your well being. You recently had an xray and labs. Your results came back normal. Please remember to follow up as discussed at your last appointment .If you have any questions please feel free to call the office at [phone], Option #3 or Option #1 to make an appointment to discuss these results. 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
[2025-01-22 04:16] VITALS: BP 178/98; PULSE 73; RESP 18; TEMP 36.9; O2SAT 96
--- OUTSIDE RECORDS SUMMARY | 2025-01-22 05:20 | XMS_ITS | Clinical Summary ---
Author Organization [facility] Address [address] [place] [address] Care Team Providers Care Orange Picking Supervisor Name Role Phone None, Provider MD Primary [...] Comments Blood Pressure 156/102 10/22/2024 10:38 AM FLOOR PERSON Pulse 91 10/22/2024 10:38 AM FLOOR PERSON Temperature 36.3 C (97.3 F) 10/22/2024 10:38 AM FLOOR PERSON Respiratory Rate 20 10/22/2024 10:38 AM FLOOR PERSON Oxygen Saturation 100% 10/22/2024 10:38 AM FLOOR PERSON Inhaled Oxygen Concentration - - Weight 117.9 kg (260 lb) 10/22/2024 10:38 AM FLOOR PERSON Height 172.7 cm (5' 8 ) 10/22/2024 10:38 AM FLOOR PERSON Body Mass Index 39.53 10/22/2024 10:38 AM FLOOR PERSON Plan of Treatment Health Maintenance Due Date Last Done Comments Annual Physical 2005 Pneumococcal Vaccine: Pediatrics (0 to 5 Years) and At-Risk Patients (6 to 64 Years) (1 of 1 - PPSV23 or PCV20) 2008 04/18/2006, 12/17/2003, 2002, Additional history exists PHQ-2 ([facility] [place]) 2014 Meningococcal B Vaccine (1 of 2 - Standard) 2018 HPV Vaccines (3 - Male 3-dose series) 01/02/2020 10/10/2019, 04/26/2017 DTaP, Tdap and Td Vaccines (6 - Td or Tdap) 06/06/2023 06/06/2013, 08/16/2006, 04/18/2006, Additional history exists COVID-19 Vaccine (1 - season) 2024 Influenza Adult (#1) 2024 11/18/2021, 10/10/20 19 PHQ-2 (Physician [place]) 11/20/2024 Hepatitis B Vaccines Completed 04/18/2006, 02/27/2003, 2002 Hepatitis C Completed 12/21/2017, 12/21/2017 Meningococcal Vaccine Completed 10/10/2019 , 04/26/2017, 05/11/2016 RSV Immunizations Under 20 Months Aged Out No longer eligible based on patient's age to complete this topic Procedures Procedure Name Priority Date/Time Associated Diagnosis Comments HEPATITIS PANEL,ACUTE Routine 12/21/2017 11:08 AM FLOOR PERSON from Last 3 Months or Most Recently Relevant to Health Maintenance Results * HEPATITIS PANEL,ACUTE (12/21/2017 11:08 AM FLOOR PERSON) HEPATITIS B SURFACE AG NON-REACTI VE NON-REACTI VE 12/22/2017 1:38 PM FLOOR PERSON [facility] HEP B CORE TOTAL AB NON-REACTI VE NON-REACTI VE 12/22/2017 1:38 PM FLOOR PERSON [facility] HEP B SURFACE AB NON-REACTI VE 12/22/2017 1:38 PM FLOOR PERSON [facility] HAV IGM NON-REACTI VE NON-REACTI VE 12/22/2017 1:38 PM FLOOR PERSON [facility] HEPATITIS C AB NON-REACTI VE NON-REACTI VE 12/22/2017 1:38 PM FLOOR PERSON [facility] 12/21/2017 11:0 8 AM FLOOR PERSON 12/22/2017 12:44 PM FLOOR PERSON us Generic Conversion Md [facility] Final R esult [facility] [address] [place] [address], from Last 3 Months or Most Recently Relevant to Health Maintenance Insurance [place] [address] [facility] [facility] Care Teams Orange Picking Supervisor Relationship Specialty Start Date End Date None, Provider, MD PCP - General UNKNOWN PHYSICIAN SPECIALTY 07/14/24
--- OUTSIDE RECORDS SUMMARY | 2025-01-22 05:20 | XMS_ITS | Encounter Summary ---
Author Organization [facility] Address [address] [place] [address] Care Team Providers Care Packager Head Name Role Phone Howie Macdonald MD Primary Care Provider + None, Provider Primary Care Provider Unavaila ble Encounter Details Date Type Department Care Team (Late st Contact Info) Description 01/09/2017 Abstract [facility] Conversion Howie Macdonald MD [address] [phone] Social History Tobacco Use Types [...] AM CST Jan 09, 2017 Tariq Arceo [address] [place] [phone] Dear Tariq Arceo, Thank you for choosing for your health care needs. We appreciate the opportunity to help you maintain your well being. You recently had an xray and labs. Your results came back normal. Please remember to follow up as discussed at your last appointment .If you have any questions please feel free to call the office at [phone], Option #3 or Option #1 to make an appointment to discuss these results. 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
--- OUTSIDE RECORDS SUMMARY | 2025-01-22 05:20 | XMS_ITS | CONTINUITY OF CARE DOCUMENT ---
Author Name monica anderson Address Unknown Organization [facility] Address [address] [place] [address] Phone [phone] Care Team Providers Care Casting And Curing Operator Name Role Phone Dayo [facility], Alissa Unavailable Alissa Oshea MD Unavailable [phone] INSURANCE PROVIDERS Payer name Policy type / Coverage type [employer] party ID ESTHER [employer] Medicaid [id number]
== END 2025-01-22 05:36 | disposition left against medical advice (07) ==
LOC: ANHED 05:18
DX: R11.2 Nausea with vomiting, unspecified (principal)
CPT/HCPCS: 99199